=== PATIENT | male | born 1970 | race Caucasian/White ===

== ENCOUNTER 2018-09-28 13:48 | Day surgery (SDC) | payer BC ==
[2018-09-28 14:39] LABS: Absolute Lymphocytes (CBC) 1.9 K/uL (0.7-4.9); Basophils % 0.4 % (0-1.3); Hematocrit 45.3 % (39.6-49.0); Lymphocytes % 18.9 % (15.3-44.8); MPV 9.2 fL (7.6-11.3); RBC Red Blood Cell Count 4.74 M/uL (4.33-5.43)
[2018-09-28 15:46] LABS: Urine Blood NEGATIVE (NEG); Urine Glucose NEGATIVE (NEG); Urine Protein NEGATIVE (NEG); Urine Specific Gravity 1.025 (1.005-1.030); Urine pH 5.5 (5.0-7.0)
[2018-09-28 15:55] LABS: Bilirubin Direct 0.1 mg/dL (0-0.2); Bilirubin Total 0.6 mg/dL (0.2-1.0); Potassium 3.9 mmol/L (3.5-5.1); Protein, Total 7.6 g/dL (6.4-8.2)
[2018-09-28] MEDS ORDERED: NA CHLORIDE 0.9% 1,000 ML ONE (16:06)
[2018-09-28] MEDS ORDERED: ONDANSETRON 4 MG/2 ML VIAL ONE ×2 (16:06→19:47)
[2018-09-28] MEDS ORDERED: PIPER/TAZO/NS 3.375gm 3.375 GM/100 ML BAG ONE (16:06)
[2018-09-28] MEDS ORDERED: MORPHINE 4 MG/ML SYR ONE (16:06)
--- NOTE | 2018-09-28 16:21 | RAD REPORT ---
EXAM DESCRIPTION: CT - Abdomen Pelvis W Contrast - 09/28/2018 4:10 pm CLINICAL HISTORY: Abdominal pain, bloating, right flank pain COMPARISON: None. TECHNIQUE: Biphasic, helical CT imaging of the abdomen and pelvis was performed following 100 ml non -ionic IV contrast. No oral contrast administered. All CT scans are performed using dose optimization technique as appropriate and may include automated exposure control or mA/KV adjustment according to patient size. FINDINGS: No suspicious findings in the lung bases. Liver attenuation is borderline fatty infiltrated. No focal liver lesion. Spleen and pancreas are unr emarkable. Gallbladder and biliary tree are also without suspicious finding. Symmetric renal function is seen with no hydronephrosis or suspicious renal mass. No pyelonephritis o r acute parenchymal process. No bladder abnormalities. No adrenal abnormalities. No gastric dilatation or wall thickening. No small bowel abnormality. Rucker of the tip of the cecum a re mildly thickened. Appendix is 11-12 mm in maximum diameter with slight thickening and enhancement of the rucker. Periappendiceal stranding is present. The appendix is retrocecal in location. No append icolith. No perforated appendix or abscess. A few small right lower quadrant mesenteric lymph nodes a re present under 1 centimeter. No free air, pneumatosis or free fluid. No other inflammatory stranding. No hernia, mass or bulky lymphadenopathy. No suspicious bony findings. IMPRESSION: Mild or early retrocecal acute appendicitis. No abscess, free air or other surgical complicating factor. Borderline fatty infiltration of the liver.
--- NOTE | 2018-09-28 17:18 | ER ---
Nurse's Notes [facility] Name: Toy Badillo Age: 48 yrs Sex: Male : 1970 Arrival Date: 09/28/2018 Time: 13:52 Bed 27 Private MD: Diagnosis: Acute appendicitis;Acute appendicitis with localized peritonitis Presentation: 09/28 13:55 Presenting complaint: Patient states: i felt a lot of gas and bloating on my R flank hj area, denies N/V; reports diarrhea;. Transition of care: patient was not received from another setting of care. Onset of symptoms was September 28, 2018. Risk Assessment: Do you want to hurt yourself or someone else? Patient reports no desire to harm self or others. Initial Sepsis Screen: Does the patient meet any 2 criteria? No. Patient's initial sepsis screen is negative. Does the patient have a suspected source of infection? No. Patient's initial sepsis screen is negative. Care prior to arrival: None. 13:55 Method Of Arrival: Ambulatory 13:55 Acuity: MCA 3 hj Historical: - Allergies: 13:57 No Known Allergies; hj - PMHx: 13:57 None; hj - PSHx: 13:57 None; hj - Immunization history:: Adult Immunizations up to date. - Social history:: Smoking status: Patient/guardian denies using tobacco. - Ebola Screening: : Patient negative for fever greater than or equal to 101.5 degrees Fahrenheit, and additional compatible Ebola Virus Disease symptoms Patient denies exposure to infectious person Patient denies travel to an Ebola-affected area in the 21 days before illness onset No symptoms or risks identified at this time. Screenin:15 Abuse screen: Denies threats or abuse. Denies injuries from another. Nutritional ca1 screening: No deficits noted. Tuberculosis screening: No symptoms or risk factors identified. Fall Risk IV access (20 points). Assessment: 14:15 General: Appears in no apparent distress. comfortable, Behavior is calm, cooperative, ca1 appropriate for age. Pain: Complains of pain in right lower quadrant Pain does not radiate. Pain currently is 7 out of 10 on a pain scale. Quality of pain is described as dull, Pain began 1 day ago. Is continuous. Neuro: Level of Consciousness is awake, alert, obeys commands, Oriented to person, place, time, situation, Appropriate for age. Cardiovascular: Heart tones S1 S2 present Capillary refill < 3 seconds Patient's skin is warm and dry. Respiratory: Airway is patent Respiratory effort is even, unlabored, Respiratory pattern is regular, symmetrical, Breath sounds are clear bilaterally. GI: Abdomen is round non-distended, Bowel sounds present X 4 quads. Abd is soft X 4 quads Abdomen is tender to palpation in right lower quadrant Guarding noted in right lower quadrant Patient currently denies diarrhea, nausea, vomiting. : No deficits noted. No signs and/or symptoms were reported regarding the genitourinary system. EENT: No deficits noted. No signs and/or symptoms were reported regarding the EENT system. Derm: Skin is intact, is healthy with good turgor, Skin is pink, warm \T\ dry. Musculoskeletal: Circulation, motion, and sensation intact. Capillary refill < 3 seconds, Range of motion: intact in all extremities. 14:58 Reassessment: Patient appears in no apparent distress at this time. Patient and/or ca1 family updated on plan of care and expected duration. Pain level reassessed. Patient is alert, oriented x 3, equal unlabored respirations, skin warm/dry/pink. 15:43 Reassessment: Patient appears in no apparent distress at this time. Patient and/or ca1 family updated on plan of care and expected duration. Pain level reassessed. Patient is alert, oriented x 3, equal unlabored respirations, skin warm/dry/pink. 16:40 Reassessment: Patient appears in no apparent distress at this time. Patient and/or ca1 family updated on plan of care and expected duration. Pain level reassessed. Patient is alert, oriented x 3, equal unlabored respirations, skin warm/dry/pink. 16:40 Reassessment: Refused pain medications at this time. ca1 17:36 Reassessment: Patient appears in no apparent distress at this time. Patient and/or ca1 family updated on plan of care and expected duration. Pain level reassessed. Patient is alert, oriented x 3, equal unlabored respirations, skin warm/dry/pink. 18:20 Reassessment: Patient appears in no apparent distress at this time. Patient and/or ca1 family updated on plan of care and expected duration. Pain level reassessed. Patient is alert, oriented x 3, equal unlabored respirations, skin warm/dry/pink. Surgeon at bedside. Informed Consent signed. Vital Signs: 13:57 BP 132 / 86; Pulse 82; Resp 18; Temp 98.1(TE); Pulse Ox 97% on R/A; Weight 83.46 kg; hj Height 5 ft. 7 in. (170.18 cm); Pain 7/10; 14:58 BP 128 / 86; Pulse 80; Resp 16 S; Pulse Ox 100% on R/A; ca1 15:43 BP 111 / 70; Pulse 78; Resp 16 S; Pulse Ox 99% on R/A; ca1 16:40 BP 109 / 75; Pulse 82; Resp 16 S; Pulse Ox 100% on R/A; ca1 17:26 BP 122 / 88; Pulse 72; Resp 16 S; Pulse Ox 98% on R/A; ca1 18:35 BP 123 / 81; Pulse 65; Resp 15 S; Temp 98.4(O); Pulse Ox 100% on R/A; ca1 13:57 Body Mass Index 28.82 (83.46 kg, 170.18 cm) ED Course: 13:52 Patient arrived in ED. rg4 13:56 Triage completed. hj 13:57 Arm band placed on left wrist. hj 14:11 Sultana Colvin, RN is Primary Nurse. ca1 14:15 Patient has correct armband on for positive identification. Placed in gown. Bed in low ca1 position. Call light in reach. Side rails up X 1. Pulse ox on. NIBP on. Warm blanket given. 14:15 No provider procedures requiring assistance completed. ca1 14:17 Garry Viveros MD is Attending Physician. kdr 14:25 Inserted saline lock: 18 gauge in right antecubital area, using aseptic technique. ca1 Blood collected. 16:13 CT Abd/Pelvis - IV Contrast Only In Process Unspecified. EDMS 17:17 Jer Sadler MD is Hospitalizing Provider. kdr 18:51 Patient admitted, IV remains in place. ca1 Administered Medications: 16:33 Drug: Zosyn 3.375 grams Route: IVPB; Infused Over: 60 mins; Site: right antecubital; ca1 17:40 Follow up: Response: No adverse reaction; IV Status: Completed infusion ca1 16:33 Drug: NS 0.9% 1000 ml Route: IV; Rate: 1 bolus; Site: right antecubital; ca1 18:35 Follow up: Urine output 210 ml; Response: No adverse reaction; IV Status: Completed ca1 infusion Output: 18:35 Urine: 210ml; Total: 210ml. ca1 Outcome: 17:17 Decision to Hospitalize by Provider. kdr 18:51 Admitted to OR accompanied by nurse, family with patient, via stretcher, with chart, ca1 Other report given to Clarice Macdonald RN 18:51 Condition: stable 18:51 Instructed on the need for admit. 18:52 Patient left the ED. ca1 Signatures: Dispatcher [employer] EDMS Garry Viveros MD MD kdr Bubba Hamlin RN RN Rosaura Galeano 4 Sultana Colvin RN RN ca1 Corrections: (The following items were deleted from the chart) 13:58 13:57 Pulse 82bpm; Resp 18bpm; Pulse Ox 97% RA; Temp 98.1F Temporal; 83.46 kg; Height 5 hj ft. 7 in.; BMI: 28.8; Pain 7/10; hj
--- NOTE | 2018-09-28 17:19 | EDPHYS ---
Physician Documentation [facility] Name: Toy Badillo Age: 48 yrs Sex: Male : 1970 Arrival Date: 09/28/2018 Time: 13:52 Bed 27 Private MD: ED Physician Garry Viveros HPI: 09/28 15:44 This 48 yrs old Male presents to ER via Ambulatory with complaints of RLQ kdr pain. 15:58 The patient presents with abdominal pain right lower quadrant. Onset: The kdr symptoms/episode began/occurred suddenly, yesterday, Started at about 4:00 PM. The symptoms radiate to the right flank, anterior aspect of right lateral abdomen and right lower quadrant. Associated signs and symptoms: Pertinent positives: anorexia, nausea, Pertinent negatives: blood in stools, chest pain, constipation, diarrhea, fever, palpitations, shortness of breath, testicular pain, vomiting, vomiting blood. The symptoms are described as constant, dull, sharp, steady. Modifying factors: The symptoms are alleviated by remaining still, the symptoms are aggravated by breathing deeply, movement, touching the area. Severity of pain: At its worst the pain was severe in the emergency department the pain is unchanged. The patient has not experienced similar symptoms in the past. The patient has not recently seen a physician. Historical: - Allergies: 13:57 No Known Allergies; hj - PMHx: 13:57 None; hj - PSHx: 13:57 None; hj - Immunization history:: Adult Immunizations up to date. - Social history:: Smoking status: Patient/guardian denies using tobacco. - Ebola Screening: : Patient negative for fever greater than or equal to 101.5 degrees Fahrenheit, and additional compatible Ebola Virus Disease symptoms Patient denies exposure to infectious person Patient denies travel to an Ebola-affected area in the 21 days before illness onset No symptoms or risks identified at this time. ROS: 15:58 Constitutional: Negative for fever, chills, and weight loss, Eyes: Negative for injury, kdr pain, redness, and discharge, Neck: Negative for injury, pain, and swelling, Cardiovascular: Negative for chest pain, palpitations, and edema, Respiratory: Negative for shortness of breath, cough, wheezing, and pleuritic chest pain, Back: Negative for injury and pain, : Negative for injury, bleeding, discharge, and swelling, MS/Extremity: Negative for injury and deformity, Skin: Negative for injury, rash, and discoloration, Neuro: Negative for headache, weakness, numbness, tingling, and seizure activity. Psych: Negative for depression, anxiety, suicide ideation, homicidal ideation, and hallucinations, Allergy/Immunology: Negative for hives, rash, and allergies, Endocrine: Negative for neck swelling, polydipsia, polyuria, polyphagia, and marked weight changes, Hematologic/Lymphatic: Negative for swollen nodes, abnormal bleeding, and unusual bruising. 15:58 Abdomen/GI: Positive for abdominal pain, nausea, anorexia, Negative for constipation, abdominal cramps, abdominal distension, dysphagia, hematemesis, black/tarry stool, rectal pain, rectal bleeding. Exam: 15:58 Constitutional: This is a well developed, well nourished patient who is awake, alert, kdr and in no acute distress. Head/Face: Normocephalic, atraumatic. Eyes: Pupils equal round and reactive to light, extra-ocular motions intact. Lids and lashes normal. Conjunctiva and sclera are non-icteric and not injected. Cornea within normal limits. Periorbital areas with no swelling, redness, or edema. Neck: Trachea midline, no thyromegaly or masses palpated, and no cervical lymphadenopathy. Supple, full range of motion without nuchal rigidity, or vertebral point tenderness. No Meningismus. Chest/axilla: Normal chest wall appearance and motion. Nontender with no deformity. No lesions are appreciated. Cardiovascular: Regular rate and rhythm with a normal S1 and S2. No gallops, murmurs, or rubs. Normal PMI, no JVD. No pulse deficits. Respiratory: Lungs have equal breath sounds bilaterally, clear to auscultation and percussion. No rales, rhonchi or wheezes noted. No increased work of breathing, no retractions or nasal flaring. Back: No spinal tenderness. No costovertebral tenderness. Full range of motion. Skin: Warm, dry with normal turgor. Normal color with no rashes, no lesions, and no evidence of cellulitis. MS/ Extremity: Pulses equal, no cyanosis. Neurovascular intact. Full, normal range of motion. Neuro: Awake and alert, GCS 15, oriented to person, place, time, and situation. Cranial nerves II-XII grossly intact. Motor strength 5/5 in all extremities. Sensory grossly intact. Cerebellar exam normal. Normal gait. Psych: Awake, alert, with orientation to person, place and time. Behavior, mood, and affect are within normal limits. 15:58 Abdomen/GI: Inspection: abdomen appears normal, Bowel sounds: active, diminished, in all quadrants, Palpation: soft, severe abdominal tenderness, in the right lower quadrant, mass, is not appreciated, rebound tenderness, is appreciated in the right lower quadrant. Vital Signs: 13:57 BP 132 / 86; Pulse 82; Resp 18; Temp 98.1(TE); Pulse Ox 97% on R/A; Weight 83.46 kg; hj Height 5 ft. 7 in. (170.18 cm); Pain 7/10; 14:58 BP 128 / 86; Pulse 80; Resp 16 S; Pulse Ox 100% on R/A; ca1 15:43 BP 111 / 70; Pulse 78; Resp 16 S; Pulse Ox 99% on R/A; ca1 16:40 BP 109 / 75; Pulse 82; Resp 16 S; Pulse Ox 100% on R/A; ca1 17:26 BP 122 / 88; Pulse 72; Resp 16 S; Pulse Ox 98% on R/A; ca1 18:35 BP 123 / 81; Pulse 65; Resp 15 S; Temp 98.4(O); Pulse Ox 100% on R/A; ca1 13:57 Body Mass Index 28.82 (83.46 kg, 170.18 cm) hj MDM: 15:58 Data reviewed: vital signs, nurses notes, lab test result(s), radiologic studies. kdr Counseling: I had a detailed discussion with the patient and/or guardian regarding: the historical points, exam findings, and any diagnostic results supporting the discharge/admit diagnosis, lab results, radiology results. 17:17 Patient medically screened. kdr 09/28 14:15 Order name: Basic Metabolic Panel; Complete Time: 15:57 ca1 09/28 14:15 Order name: CBC with Diff; Complete Time: 15:50 ca1 09/28 14:15 Order name: Creatinine for Radiology; Complete Time: 15:50 ca1 09/28 14:15 Order name: Hepatic Function; Complete Time: 15:57 ca1 09/28 14:15 Order name: Lipase; Complete Time: 15:57 ca1 09/28 14:21 Order name: Urine Dipstick--Ancillary (enter results); Complete Time: 15:50 bd 09/28 14:15 Order name: IV Saline Lock; Complete Time: 14:23 ca1 09/28 14:15 Order name: Labs collected and sent; Complete Time: 14:23 ca1 09/28 15:05 Order name: Labs - recollect needed: bmp only; Complete Time: 15:11 ss 09/28 15:57 Order name: CT Abd/Pelvis - IV Contrast Only kdr Administered Medications: 16:33 Drug: Zosyn 3.375 grams Route: IVPB; Infused Over: 60 mins; Site: right antecubital; ca1 17:40 Follow up: Response: No adverse reaction; IV Status: Completed infusion ca1 16:33 Drug: NS 0.9% 1000 ml Route: IV; Rate: 1 bolus; Site: right antecubital; ca1 18:35 Follow up: Urine output 210 ml; Response: No adverse reaction; IV Status: Completed ca1 infusion Disposition: 09/28/18 17:17 Hospitalization ordered by Jer Sadler for Observation. Preliminary diagnosis are Acute appendicitis, Acute appendicitis with localized peritonitis. - Bed requested for Operating Room. - Status is Observation. ca1 - Condition is Fair. - Problem is new. - Symptoms are unchanged. UTI on Admission? No Signatures: Dispatcher [employer] EDMS Garry Viveros MD MD kdr Bernice Pedraza RN RN Bubba Hamlin RN RN Sultana Colvin RN RN ca1 Corrections: (The following items were deleted from the chart) 15:58 15:44 This 48 yrs old Male presents to ER via Ambulatory with complaints of kdr Right scapular and chest wall Pain. kdr 18:52 17:17 Hospitalization Ordered by Jer Sadler MD for Observation. Preliminary diagnosis ca1 is Acute appendicitis; Acute appendicitis with localized peritonitis. Bed requested for Operating Room. Status is Observation. Condition is Fair. Problem is new. Symptoms are unchanged. UTI on Admission? No. kdr
[2018-09-28] MEDS ORDERED: BUPIVACA 0.5%/EPI 0.0005%/PF 10 ML VIAL ONE (18:12)
[2018-09-28] MEDS ORDERED: Ringers Lactate 1,000 ML IV ONE ×2 (18:58→19:57)
[2018-09-28] MEDS ORDERED: SUCCINYLCHOLINE 20 MG/ML (10 ML) IV ONE (19:08)
[2018-09-28] MEDS ORDERED: ROCURONIUM 50 MG/5 ML VIAL IV ONE (19:11)
[2018-09-28] MEDS ORDERED: PROPOFOL 200 MG/20 ML VIAL IV ONE (19:11)
[2018-09-28] MEDS ORDERED: MIDAZOLAM HCL 2 MG/2 ML INJ ONE (19:12)
[2018-09-28] MEDS ORDERED: FENTANYL CITR 250 MCG/5 ML ONE (19:12)
[2018-09-28] MEDS ORDERED: NEOSTIGMINE 1 MG/ML -10 ML VIAL ONE (19:46)
[2018-09-28] MEDS ORDERED: GLYCOPYRROLATE 0.2 MG/ML SYR ONE (19:46)
--- NOTE | 2018-09-28 19:59 | P.OP ---
Preoperative diagnosis: Acute Appendicitis Postoperative diagnosis: Acute Appendicitis Primary procedure: Laparoscopic Appendectomy Anesthesia: GETA + Local Estimated blood loss: <10cc Specimen: Vermiform Appendix Findings: Non-Perforated Acute Appendicitis Complications: None Transferred to: Recovery Room Condition: Good
[2018-09-28] MEDS ORDERED: KETOROLAC 30 MG/ML INJ ONE (20:22)
[2018-09-28] MEDS: HYDROMORPHONE HCL 1 MG/ML INJ ONE ×4 (20:32→20:48)
--- NOTE | 2018-09-29 04:12 | HP ---
Date of Admission: 09/28/2018 Brief History Of Present Illness: Patient is a 48-year-old male who presents [facility] the hospit [facility] with complaints of periumbilical with now right lower quadrant abdominal pain beginning yesterday evening. He states that the pain became sharp, is associated with some nausea, some fever and the pa in got significantly worse and radiated and localized to the right lower quadrant. He has never had similar episodes before in the past. No sick contacts. No recent travel. No new food exposures. Alison long did have an episode of what he believed was food poisoning approximately 2 weeks ago from [place] [facility], but that was a 24-hour period at approximately as stated above 2 weeks ago. No other aggravatin g or alleviating factors other than worse with movement and palpation. Past Medical History: Negative. Past Surgical History: Negative. Allergies: NO KNOWN DRUG ALLERGIES. Medications: He only takes intermittent Nasonex for seasonal allergies. He denies smoking, alcohol, or recreational drug use. 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 Allergies: HE HAS NO ALLERGIES TO MEDICATIONS. Review of Systems: A 10-point review of systems other than HPI, denies. Physical Examination: General: At the time of my examination, he is awake, alert, oriented. Psychiatric: Appropriate, conversive. HEENT: Normocephalic. Sclerae anicteric. Mucous membranes are moist. Oropharynx clear. Neck: Supple. No JVD. Chest: Normal expansion and excursion. Cardiovascular: Regular rate and rhythm. Pulmonary: Clear to auscultation bilaterally. Abdomen: Soft with positive right lower quadrant focal peritonitis, positive rebound, positive guard ing and tenderness, it is worse at McBurney's point. No hernias appreciated. Extremities: No clubbing, cyanosis, or edema. Skin: Warm, dry. Laboratory Data: Reveals a white blood count of 9.8, hemoglobin 15.1, hematocrit 45.3, platelet coun t is 259, neutrophils are 68%. His sodium 141, potassium 3.9, chloride 106, carbon dioxide 29, BUN 1 3, creatinine 1, glucose 93, total bilirubin 0.6, direct component 0.1, AST 19, ALT 41, alkaline phos phatase 57, lipase is 89. UA is essentially negative. He had a CT scan performed of the abdomen and pelvis, which is read officially as mild or early retrocecal acute appendicitis. No abscess, free a ir, or other surgical complicating factor. Borderline fatty infiltration of the liver. The rucker of the tip of the cecum were mildly thickened. Appendix is 11-12 mm in maximum diameter with slight th ickening enhancement of the rucker, periappendiceal stranding is present. The appendix is in the retr ocecal location. No appendicolith. No perforation of appendix or abscess. Few small right lower qu adrant mesenteric lymph nodes are present, under 1 cm. Assessment And Plan: This is a 48-year-old male, who comes in with signs and symptoms of early acute appendicitis. 1.IV fluid hydration. 2.Antibiotic coverage. 3.I have explained risks, benefits, and alternatives of laparoscopic, possible open appendectomy inc luding but not limited to bleeding, infection, damage to surrounding tissues, need for further operat ion and procedures. The patient agrees to proceed as indicated. PLACIDO/LIDA Voice ID: [id number]
--- NOTE | 2018-09-29 04:54 | OP ---
Date of Procedure: 09/28/2018 Surgeon: Jer Sadler MD, Preoperative Diagnosis: Acute appendicitis. Postoperative Diagnosis: Acute appendicitis. Procedure Performed: Laparoscopic appendectomy. Anesthesia: General endotracheal plus local with Marcaine with epinephrine. Estimated Blood Loss: Less than 10 cc. Specimen: Vermiform appendix. Findings: Acute nonperforated appendicitis. Complications: None. Disposition: Transferred to recovery room in good condition. Procedure In Detail: After informed consent was obtained, patient was brought to the operating room, prepped and draped in the usual sterile fashion. After adequate anesthesia was achieved, infraumbil ical area was anesthetized with Marcaine and sharply incised. A 5-mm trocar was introduce d in the abdomen without evidence of complication. Insufflation was obtained to 15 mmHg at this time . There was no injury to any vital structures upon entry to the abdomen. Additional trocar site cho sen in the suprapubic region, similarly anesthetized and sharply incised. A 5-mm trocar was introduc ed in the abdomen without evidence of complication. The umbilical trocar was then up-sized to 12 mm under direct visualization without evidence of complication. Additional trocar site chosen left lowe r quadrant and similarly anesthetized and sharply incised. A 5-mm trocar was introduced in the abdom en without evidence of complication. Patient was positioned in the head down, right side up position . The appendix was grasped and elevated and found to be in the right lower quadrant. Findings consi stent with acute nonperforated appendicitis. Mesoappendiceal window was created with the [place] re tractor and the Endo MCKAY 35 blue load was fired across the base of the appendix with good approximati on of tissues. The LigaSure device was then used to take down the mesoappendix with good hemostasis. There was minimal bleeding at the end of this aspect of the procedure. The appendix was then place d in an EndoCatch bag and removed the umbilical trocar. Re-insufflation was obtained at that time. The area was suctioned out until completely dry. The LigaSure device was used to cauterize the appen diceal artery, which was easily controlled with the LigaSure device. The area had good hemostasis at this point of the procedure. The area was copiously irrigated multiple times and the pelvis was was hed out completely and suctioned out until completely dry. Patient was then positioned in neutral po sition. The staple line was inspected and found to have good hemostasis without any leakage. The ab domen was then copiously irrigated one last time and suctioned until completely dry. Good hemostasis was achieved without any additional hemostatic maneuvers at this time. The umbilical trocar site wa s then inspected. The umbilical trocar was removed. The umbilical trocar site was then closed using a Anil-Campos suture passer and 0 Vicryl fin interrupted fashion with good approximation of tiss ues. The abdomen was completely desufflated at this time while trocars were placed under direct visu alization without evidence of complication. After abdomen was completely desufflated, the trocars th en all removed. All skin incisions were copiously irrigated and closed with 4-0 Monocryl in a runnin g fashion. Dermabond was placed over the top. Patient tolerated the procedure well without evidence of complication and transferred to PACU in good condition. All counts were correct at the end of e case. PLACIDO/LIDA Voice ID: [id number] Report ID: [id number]
== END 2018-09-28 20:02 | disposition home or self-care (01) ==
LOC: ER 13:48 → DS 18:52
PROVIDERS: ATTEND Surgery
PROC: 0DTJ4ZZ Resection of Appendix, Percutaneous Endoscopic Approach (ICD-10-PCS; principal; 2018-09-28 19:00)
DX: K35.80 Unspecified acute appendicitis (principal)
CPT/HCPCS: 44970; 96365; 96361; 85025; 80048; 36415; 80076; 88304; 81003; 83690; 74177; 99285; Q9967; J2704; J2710; J0330; J2250; J3010; J2543; J1170 ×2; J7030; J2405

== ENCOUNTER 2019-02-25 07:27 | Day surgery (SDC) | payer BC ==
--- OUTSIDE RECORDS SUMMARY | 2019-02-25 07:33 | XMS REPORT ---
:1970 Author Organization [employer] Care Team Providers Name Role Phone Jer Sadler Provider Role Unavailable Allergies No Known Allergies Problems Problem Type Condition Code Onset Dates Condition Status Problem Acute appendicitis, unspecified K35.80 Active acute appendicitis type Problem RLQ abdominal pain R10.31 Active Medications No Known Medications Results No Known Results Summary Purpose [employer] Submission
[2019-02-25] MEDS ORDERED: Ringers Lactate 1,000 ML IV ONE (07:37)
[2019-02-25] MEDS ORDERED: LIDOCAINE 1% MPF 30 ML VIAL ONE (08:47)
[2019-02-25] MEDS ORDERED: propofoL 200 MG/20 ML VIAL IV ONE ×2 (08:47)
--- NOTE | 2019-02-25 09:25 | ENDO RPT ---
[address], [address] EGD PROCEDURE REPORT EXAM DATE: 02/25/2019 PATIENT NAME: Toy Badillo MR#: [id number] BIRTHDATE: 1970 ATTENDING: Jer Sadler DR STATUS: outpatient INTER FOLD ROLL CUTTER: Twin Sanchez and Ani Norman RN INDICATIONS: The patient is a 49 yr old Male here for an EGD due to dysphagia and dyspepsia PROCEDURE PERFORMED: EGD with biopsy for H. pylori MEDICATIONS: Per Anesthesia. TOPICAL ANESTHETIC: none CONSENT: The patient understands the risks and benefits of the procedure and understands that these risks include, but are not limited to: sedation, allergic reaction, infection, perforation and/or bleeding. Alternative means of evaluation and treatment include, among others: physical exam, x-rays, and/or surgical intervention. The patient elects to proceed with this endoscopic procedure. DESCRIPTION OF PROCEDURE: During intra-op preparation period all mechanical medical equipment was checked for proper function. Hand hygiene and appropriate measures for infection prevention was taken. Procedure, possible complications, and alternatives including but not limited to the possibility of bleeding, perforation, tear, infection, sepsis, need for surgery, need for blood transfusion, and anesthesia related complications were explained to the patient. After the risks, benefits and alternatives of the procedure were thoroughly explained, Informed consent was verified, confirmed and timeout was successfully executed by the treatment team. The patient was placed in the left lateral position. The patient was anesthetized with topical anesthesia. Through the anesthetized oropharyngeal area, the scope was passed without any difficulty. The [id number] ([id number]) and EC-[id number] ([id number]) endoscope was introduced through the mouth and advanced to the third portion of the duodenum. Retroflexed views revealed no abnormalities. The gastroscope was then slowly withdrawn and removed. Mild Atrophic gastritis was found in the body and the antrum of the stomach. A biopsy for H. pylori was taken. ADVERSE EVENTS: There were no complications. IMPRESSIONS: Mild Atrophic gastritis was found in the body and the antrum of the stomach RECOMMENDATIONS: 1. acid suppression therapy 2. anti-reflux regimen 3. await biopsy results 4. follow-up: office 2 week(s) 5. follow-up of helicobacter pylori status, treat if indicated REPEAT EXAM: Jer Sadler DR eSigned: Jer Sadler DR 02/25/2019 9:24 AM cc: CPT CODES: ICD9 CODES: PATIENT NAME: Justino Toy L. MR#: [id number]
--- NOTE | 2019-02-25 09:28 | ENDO RPT ---
[address], [address] COLONOSCOPY PROCEDURE REPORT EXAM DATE: 02/25/2019 PATIENT NAME: Toy Badillo MR #: [id number] BIRTHDATE: 1970 ATTENDING: Jer Sadler DR STATUS: outpatient PRECISION HONER: Ani Norman RN and Twin Sanchez INDICATIONS: The patient is a 49 yr old Male here for a colonoscopy due to colon cancer screening PROCEDURE PERFORMED: Colonoscopy with biopsy - cold polypectomy MEDICATIONS: Per Anesthesia. ESTIMATED BLOOD LOSS: None CONSENT: The patient understands the risks and benefits of the procedure and understands that these risks include, but are not limited to: sedation, allergic reaction, infection, perforation and/or bleeding. Alternative means of evaluation and treatment include, among others: physical exam, x-rays, and/or surgical intervention. The patient elects to proceed with this endoscopic procedure. DESCRIPTION OF PROCEDURE: During intra-op preparation period all mechanical medical equipment was checked for proper function. Hand hygiene and appropriate measures for infection prevention was taken. Procedure, possible complications, alternatives including, but not limited to possibility of bleeding, perforation, tear, infection, sepsis, need for surgery, need for blood transfusion, were explained to the patient. After the risks, benefits and alternatives of the procedure were thoroughly explained, Informed consent was verified, confirmed and timeout was successfully executed by the treatment team. The patient was placed in the left lateral position. A digital rectal exam was performed and revealed internal hemorrhoids. After appropriate level of anesthesia, the scope was passed. The EC-[id number] ([id number]) endoscope was introduced through the anus and advanced to the cecum, which was identified by both the appendix and ileocecal valve. The quality of the prep was fair. The instrument was then slowly withdrawn as the colon was fully examined. Scope withdrawal time was 8 minutes. COLON FINDINGS: Two small smooth sessile polyps with mucous caps were found at the ileocecal valve and in the descending colon. Multiple biopsies were performed using cold forceps. Sample was obtained and sent to histology. Retroflexed views revealed no abnormalities. The scope was then completely withdrawn from the patient and the procedure terminated. ADVERSE EVENTS: There were no complications. IMPRESSIONS: Two small sessile polyps were found at the ileocecal valve and in the descending colon; multiple biopsies were performed using cold forceps RECOMMENDATIONS: 1. avoid NSAIDS for 2 weeks 2. await biopsy results 3. fiber rich diet 4. follow-up: office 2 week(s) 5. yearly hemoccult starting in 4 years 6. hemorrhoidal hygiene 7. increase dietary water RECALL: for Colonoscopy, pending biopsy results. Jer Sadler DR eSigned: Jer Sadler DR 02/25/2019 9:27 AM cc: CPT CODES: ICD9 CODES: PATIENT NAME: Toy Badillo MR#: [id number]
[2019-02-25 10:24] VITALS: BP 115/74; TEMP 97.8; O2SAT 98
== END 2019-02-25 10:18 | disposition home or self-care (01) ==
LOC: OR 07:27
PROVIDERS: ATTEND Surgery
PROC: 0DB68ZX Excision of Stomach, Via Natural or Artificial Opening Endoscopic, Diagnostic (ICD-10-PCS; 2019-02-25)
PROC: 0DBM8ZX Excision of Descending Colon, Via Natural or Artificial Opening Endoscopic, Diagnostic (ICD-10-PCS; principal; 2019-02-25 08:30)
PROC: 0DBC8ZX Excision of Ileocecal Valve, Via Natural or Artificial Opening Endoscopic, Diagnostic (ICD-10-PCS; 2019-02-25 08:30)
DX: Z12.11 Encounter for screening for malignant neoplasm of colon (principal); K63.5 Polyp of colon; K29.50 Unspecified chronic gastritis without bleeding; K29.80 Duodenitis without bleeding; K21.0 Gastro-esophageal reflux disease with esophagitis; K64.8 Other hemorrhoids
CPT/HCPCS: 88312; 88305; 45380; 43239; J2704 ×2; J7120